=== PATIENT | female | born 1960 | race Caucasian/White ===

== ENCOUNTER 2017-04-15 20:30 | Emergency (ER) | payer BC ==
[~2017-04-15 20:30] MED LIST: Sodium Chloride Irrig Solution 250 ML BOT ONE; Sterile Water Irrigation 250 ML BOT ONE
[2017-04-15] MEDS ORDERED: Lidocaine 2% w/Epinephrine 1:200K 20 ML VIAL ONE ×3 (21:01→21:07)
[2017-04-15] MEDS ORDERED: Adacel (T-DAP) 0.5 ML VIAL ONE (21:27)
[2017-04-15] MEDS ORDERED: Cephalexin 500 MG CAP ONE (21:29)
[2017-04-15] MEDS ORDERED: Bacitracin Zinc 1 Packet ONE (22:46)
[2017-04-15] MEDS ORDERED: Acetaminophen/Codeine 30-300mg Tablet ONE (22:47)
== END 2017-04-15 23:09 | disposition home or self-care (01) ==
LOC: MADERS 20:30
DX: S61.412A Laceration without foreign body of left hand, initial encounter (principal); I10 Essential (primary) hypertension; Z79.2 Long term (current) use of antibiotics; Z79.899 Other long term (current) drug therapy; W26.0XXA Contact with knife, initial encounter
CPT/HCPCS: 12002; 90471; 90715; J2001

== ENCOUNTER 2017-05-25 15:16 | Outpatient (CLI) | payer BC ==
[2017-05-25 16:41] LABS: Bilirubin Negative (Negative); Blood, Urine Moderate (Negative); Clarity Slightly Cloudy (Clear); Glucose, Urine (Dipstick) Negative (Negative); Leukocyte Moderate (Negative); Nitrite Negative (Negative); Protein, Urine (Dipstick) Negative (Neg-Trace); Urobilinogen 0.2 mg/dL (0.2-1.0); WBC/HPF 21-50 HPF (0-3)
[2017-05-25 16:42] LABS: Bacteria/HPF Rare-Few HPF (None Seen)
== END 2017-05-25 15:17 | disposition home or self-care (01) ==
LOC: MADLABBHPM 15:16
PROVIDERS: ATTEND Family Medicine
DX: R30.0 Dysuria (principal)
CPT/HCPCS: 81001; 87077; 87086; 87186

== ENCOUNTER 2017-12-03 16:11 | Emergency (ER) | payer BC ==
[2017-12-03] MEDS ORDERED: Cephalexin 500 MG CAP ONE (16:45)
== END 2017-12-03 16:56 | disposition home or self-care (01) ==
LOC: MADERS 16:11
DX: S61.411A Laceration without foreign body of right hand, initial encounter (principal); I10 Essential (primary) hypertension; Z79.899 Other long term (current) drug therapy; W26.8XXA Contact with other sharp object(s), not elsewhere classified, initial encounter
CPT/HCPCS: 99282

== ENCOUNTER 2021-07-23 10:34 | Outpatient (CLI) | payer OTHER | END 2021-07-23 10:35 | disposition home or self-care (01) | LOC: MADRAD 10:34 | PROVIDERS: ATTEND Family Medicine | DX: R05.9 Cough, unspecified (principal) | CPT/HCPCS: 71046 ==